=== PATIENT | female | born 1950 | race Two or more races ===

== ENCOUNTER 2021-01-29 17:28 | Emergency (ER) | payer OTHER ==
[~2021-01-29] VITALS: Ht 165.1 cm; Wt 81.6 kg
[2021-01-29] MEDS ORDERED: METHOCARBAMOL500 MG PO (19:26)
[2021-01-29] MEDS ORDERED: CELEBREX100 MG PO (19:26)
[2021-01-29] MEDS ORDERED: SKELAGESIC PO (19:26)
[2021-01-29] MEDS ORDERED: ULTRAM50 MG PO (19:26)
== END 2021-01-29 19:52 | disposition home or self-care (01) ==
LOC: ER 17:28
DX: M62.830 Muscle spasm of back (principal); M51.36 Other intervertebral disc degeneration, lumbar region; M54.5 Low back pain

== ENCOUNTER 2021-10-06 19:54 | Emergency (ER) | payer OTHER ==
[~2021-10-06] VITALS: Ht 165.1 cm; Wt 83.5 kg
[~2021-10-06 19:54] MED LIST: CELEBREX100 MG PO; METHOCARBAMOL500 MG PO; SKELAGESIC PO; ULTRAM50 MG PO
== END 2021-10-07 00:16 | disposition home or self-care (01) ==
LOC: ER 19:54
DX: I10 Essential (primary) hypertension (principal); R51.9 Headache, unspecified; Z88.8 Allergy status to other drugs, medicaments and biological substances

== ENCOUNTER → 2021-11-10 07:42 | Outpatient (CLI) | payer OTHER | END | disposition home or self-care (01) | LOC: NUCLEAR 07:00 | PROVIDERS: ATTEND Internal Medicine Cardiovascular Disease | DX: R07.2 Precordial pain (principal); J45.20 Mild intermittent asthma, uncomplicated; E11.9 Type 2 diabetes mellitus without complications; I10 Essential (primary) hypertension | CPT/HCPCS: 78451; A9500 ==

== ENCOUNTER 2022-03-22 13:16 | Emergency (ER) | payer OTHER ==
[~2022-03-22] VITALS: Ht 162.6 cm; Wt 84.8 kg
[2022-03-22] MEDS ORDERED: TENORMIN25 MG PO (13:59)
[2022-03-22] MEDS ORDERED: CRESTOR40 MG PO (13:59)
[2022-03-22] MEDS ORDERED: VASOTEC20 M1 PO (13:59)
[2022-03-22] MEDS ORDERED: PRILOSEC OTC20 MG PO (13:59)
[2022-03-22] MEDS ORDERED: NEURONTIN300 MG PO (14:00)
== END 2022-03-22 19:34 | disposition home or self-care (01) ==
LOC: ER 13:16
DX: R31.9 Hematuria, unspecified (principal); Z88.8 Allergy status to other drugs, medicaments and biological substances

== ENCOUNTER 2024-09-11 08:29 | Outpatient (CLI) | payer OTHER ==
[~2024-09-11 08:29] MED LIST changes: +ACETAMINOPHEN650 M2 PO; +AMLODIPINE-OLM1 EAC2; +CHILDREN'S ASPI81 MG; +COZAAR25 MG PO; +CRESTOR40 MG PO; +KETO10TA2 PO; +NEURONTIN300 MG PO; +PRILOSEC OTC20 MG PO; +TENORMIN25 MG PO; +VASOTEC20 M1 PO; +ZETIA10 MG
== END 2024-09-11 08:30 | disposition home or self-care (01) ==
LOC: NUCLEAR 08:29
PROVIDERS: ATTEND Internal Medicine
DX: I87.2 Venous insufficiency (chronic) (peripheral) (principal)

== ENCOUNTER 2025-05-04 07:28 | Outpatient (CLI) | payer OTHER | END 2025-05-04 07:29 | disposition home or self-care (01) | LOC: NUCLEAR 07:28 | PROVIDERS: ATTEND Internal Medicine | DX: I20.9 Angina pectoris, unspecified (principal) | CPT/HCPCS: 78452; 93017; A9500 ==